=== PATIENT | female | born 1990 | race Caucasian/White ===

== ENCOUNTER 2025-07-07 06:38 | Day surgery (SDC) | payer OTHER, SELFPAY ==
--- NOTE | 2025-07-07 | PATH_ITS ---
[facility] Accession Number: [id number] No. of containers..02 Tissue . 01 Material submitted: . PART A: duodenum - DUODENUM PART B: stomach - ANTRUM . 01 Diagnosis: A. DUODENUM, BIOPSY: Small bowel mucosa with no diagnostic abnormality. Negative for active inflammation, features of sprue, dysplasia, or malignancy. . B. GASTRIC ANTRUM, BIOPSY: Gastric antral mucosa with no diagnostic abnormality. No evidence of Helicobacter organisms on H/E stain. Negative for intestinal metaplasia. Negative for dysplasia or malignancy. [facility] 07/12/2025 1147 Local . 01 Electronically signed: . Fredi Wylie MD, PhD, Pathologist NPI- [id number] . 01 Gross description: . A. Received in formalin, labeled with two identifiers and duodenum, are two marion soft tissue fragments measuring 0.2 cm and 0.3 cm in greatest dimension. Submitted in cassette A1. B. Received in formalin, labeled with two identifiers and antrum, are two marion soft tissue fragments measuring 0.2 cm and 0.4 cm in greatest dimension. Submitted in cassette B1. ([id number]) /FRDanelle 07/09/2025 1521 Local . 01 Pathologist provided ICD-10: R10.13 . 01 CPT . 093645, [id number] Specimen Comment: A courtesy copy of this report has been sent to [phone] Performed at: [address] [id number] MD Hardik Dyer MD Phone: [phone]
[2025-07-07] MEDS: LACTATED RINGERS 1,000 ML 42 ML IV (07:31)
--- NOTE | 2025-07-07 07:41 | PM.PREOP ---
Pre-operative Note COVID-19 COVID-19 status: Not tested Interval Note History & Physical reviewed/Exam performed by Physician: Yes Changes to H&P: No ASA Class (for procedural sedation): II
--- NOTE | 2025-07-07 08:18 | PM.OP.EGD ---
Operative Date/Time/Diagnoses Date of procedure: 07/07/25 Time of procedure: 08:18 Pre-op diagnosis: Dyspepsia Post-op diagnosis: same Procedure & Clinicians Study performed: Esophagogastroduodenoscopy Same procedure(s) as scheduled: Yes Surgeon: Rei Mackay Anesthesia Type: Sedation Procedure Notes Procedure in detail: Surgeon: Rei Mackay MD Anesthesia: Grayson Rosen D.Jaimie. A timeout was performed. A bite blocked was placed. The patient was positioned in the left lateral decubitus position. Anesthesia was administered. The endoscope was inserted through the bite block and passed through the esophagus and stomach and into the duodenum. The duodenal mucosa appeared normal. Random biopsies were taken with cold forceps. The scope was withdrawn into the duodenal bulb and no abnormalities were found. The scope was withdrawn into the stomach. Random biopsies were taken from the antrum with cold forceps. The gastric mucosa appeared grossly normal. The scope was retroflexed and no hiatal hernia was noted. The scope was withdrawn into the esophagus and no abnormalities were found. The remainder of the esophagus was normal. The scope was withdrawn. The patient was awakened and brought to recovery. Sedation time: 3 minutes Findings: Grossly normal esophagus, stomach and duodenum Post-procedure Disposition: PACU
[2025-07-07 08:20] VITALS: BP 109/71; PULSE 81; RESP 30; TEMP 36.7; O2SAT 99
[2025-07-07 08:25] VITALS: BP 110/72; PULSE 67; RESP 18; O2SAT 97
[2025-07-07 08:32] VITALS: BP 109/72; PULSE 80; RESP 20; O2SAT 99
== END 2025-07-07 08:40 | disposition home or self-care (01) ==
PROVIDERS: Referring Provider Surgery; Visit Provider Surgery
PROC: 0DJ08ZZ Inspection of Upper Intestinal Tract, Via Natural or Artificial Opening Endoscopic (ICD-10-PCS; CPT 43239; principal; 2025-07-07 08:15)
DX: R10.13 Epigastric pain (principal); F17.210 Nicotine dependence, cigarettes, uncomplicated
CPT/HCPCS: 43239; J2704